=== PATIENT | female | born 1985 | race Caucasian/White ===

== ENCOUNTER 2024-05-23 23:18 | Emergency (ER) | payer OTHER, SELFPAY ==
[2024-05-23 23:37] VITALS: BP 112/73
[2024-05-23 23:52] LABS: Urine Albumin Negative (Neg - Trace); Urine Bilirubin Negative (Negative); Urine Character Slightly Cloudy (Clear); Urine Color Yellow; Urine Glucose Negative (Negative); Urine Ketone Negative (Negative); Urine Leukocyte Trace (Negative); Urine Nitrite Negative (Negative); Urine Occult Blood Negative (Negative); Urine Specific Gravity 1.015 (<1.030); Urine Urobilinogen Negative (Neg - 1+)
[2024-05-24 00:26] LABS: Urine Amorphous Seen; Urine Mucus Moderate; Urine Squamous Cell >30 /LPF (Few); Urine Urothelial Cell >30 /LPF (FEW)
[2024-05-24 00:27] LABS: Urine Bacteria Many (Negative)
--- NOTE | 2024-05-24 00:28 | ED.GENMED ---
History of Present Illness
<CLIFF Dunn - Last Filed: 05/24/24 03:48>
General
Chief Complaint: Flank Pain
Source: patient and family (Mother)
Time Seen by Provider: 05/24/24 00:20
Nursing documentation reviewed up to this point in time: agreed with
History of Present Illness
History of Present Illness:
A pleasant 38-year-old -0-2-2, who is currently 25 weeks gestation, with a past medical history of nephrolithiasis, drug-induced lupus, presents to the emergency department for right-sided flank pain x 2 days. Patient states that over the last
2 days she has felt achy right-sided flank pain without radiation. She states at 9:45 PM tonight there was a significant increase in sharp/stabbing pain on the right side leading to nausea and 1 episode of nonbloody vomiting where she retched 3
times. She currently rates her pain at a 7 out of 10 which fluctuates up to a 9 out of 10 during right side colic. She denies SOB, chest pain, diarrhea, vaginal bleeding.
Past History
<CLIFF Dunn - Last Filed: 05/24/24 03:48>
Past History
ED Past Medical History: Other (Drug-induced lupus)
ED Past Surgical History: Other ([place] teeth)
Social History
Tobacco: Non-smoker
Alcohol: None
Drug: None
Review of Systems
<CLIFF Dunn - Last Filed: 05/24/24 03:48>
Review of Systems
Allergies reviewed?: Yes
All Other Systems: ROS reviewed and negative except as documented in HPI and ROS
Phy Exam
<CLIFF Dunn - Last Filed: 05/24/24 03:48>
General Physical Exam
General Presentation: mild distress
General age: appears stated age
General Skin: warm
General Habitus: other (25 weeks gestation)
General Mental: alert
General Hydration: appears well hydrated
Eye Exam
Eye Exam: conjunctiva normal
Cardiovascular Exam
Cardiovascular Exam: regular rate/rhythm, no gallop, no murmur and normal peripheral pulses
Pulmonary Exam
Pulmonary Exam: lungs clear, no respiratory distress, no crackles and no cough
Gastrointestinal Exam
Gastrointestinal Exam: non tender, cva tenderness (Right side) and other (Appropriately distended for 25-week gestation)
Neurological Exam
Neurological Exam: alert and oriented x3
Musculoskeletal Exam
Musculoskeletal Exam: full ROM
Skin Exam
Skin Exam: warm/dry
Psychiatric Exam
Psychiatric Exam: other (In visible pain)
Course
<Jimmy Kamara [facility] - Last Filed: 05/24/24 03:48>
Orders/Labs/Results
Orders:
Orders
05/23/24 23:47
Urinalysis Reflex To Culture Urgent
Date Specimen was Collected: 05/23/24
Time Specimen was Collected: 23:44
Urine Microscopic Reflex Cult Urgent
Urine Culture Urgent
JENNY Source: U
Specimen Description:
Date Specimen was Collected: 05/23/24
Time Specimen was Collected: 23:44
05/24/24 00:24
Renal & Bladder US [US Renal With Bladder] Urgent
Comment:
Reason For Exam: acute R flank pain w N/V--25 w prg
05/24/24 01:02
Acetaminophen 1000MG/100Ml [Ofirmev] 1,000 mg in 100 ml IV ONCE
Acetaminophen IV Indication:: ED Narcotic Naive Pt-ONCE
05/24/24 01:56
Urinalysis Reflex To Culture Urgent
Date Specimen was Collected: 05/24/24
Time Specimen was Collected: 01:53
Urine Microscopic Reflex Cult Urgent
Urine Culture Urgent
JENNY Source: U
Specimen Description:
Date Specimen was Collected: 05/24/24
Time Specimen was Collected: 01:53
05/24/24 02:20
Basic Metabolic Panel Urgent
Complete Blood Count/With Diff Urgent
05/24/24 02:58
Cephalexin Monohydrate [Keflex] 500 mg PO NOW STA
Abnormal Lab Results
05/23/24 05/24/24 05/24/24
23:47 01:56 02:20
WBC 12.6 H 10^3/uL
(4.8-10.8)
RBC 4.07 L 10^6/uL
(4.20-5.40)
Hct 34.4 L %
(37.0-47.0)
MPV 10.9 H fL
(7.4-10.4)
Abs Immat Gran (auto) 0.1 H 10^3/uL
(0-0.05)
Absolute Neuts (auto) 10.4 H 10^3/uL
(1.4-6.5)
Absolute Monos (auto) 0.8 H 10^3/uL
(0.1-0.6)
Immature Gran % 0.8 H %
(0-0.5)
Neutrophils % 82.5 H %
(42.2-75.2)
Lymphocytes % 9.8 L %
(20.5-51.1)
Carbon Dioxide 20 L mmol/L
(22-30)
Ur Occult Blood Reflex 4+ A
(Negative)
Leukocyte Esterase Rfl Trace A
(Negative)
Urine RBC 7-10 A /HPF >100 A /HPF
(0-2) (0-2)
Urine WBC (Reflex) 11-15 A /HPF
(0-5)
Urine Bacteria (Reflex) Many A Moderate A
(Negative) (Negative)
05/24/24 02:20
05/24/24 02:20
Vital Signs
Initial and Last Documented VS:
Initial Vital Signs
Temp Pulse Resp BP Pulse Ox
98.2 F 78 26 112/73 99
05/23/24 23:37 05/23/24 23:37 05/23/24 23:37 05/23/24 23:37 05/23/24 23:37
Last Documented Vital Signs
Temp Pulse Resp BP Pulse Ox
98.2 F 85 16 109/57 98
05/23/24 23:37 05/24/24 03:15 05/24/24 03:15 05/24/24 03:15 05/24/24 03:15
<Ileana Wong DO - Last Filed: 05/24/24 03:06>
Orders/Labs/Results
Orders:
Orders
05/23/24 23:47
Urinalysis Reflex To Culture Urgent
Date Specimen was Collected: 05/23/24
Time Specimen was Collected: 23:44
Urine Microscopic Reflex Cult Urgent
Urine Culture Urgent
JENNY Source: U
Specimen Description:
Date Specimen was Collected: 05/23/24
Time Specimen was Collected: 23:44
05/24/24 00:24
Renal & Bladder US [US Renal With Bladder] Urgent
Comment:
Reason For Exam: acute R flank pain w N/V--25 w prg
05/24/24 01:02
Acetaminophen 1000MG/100Ml [Ofirmev] 1,000 mg in 100 ml IV ONCE
Acetaminophen IV Indication:: ED Narcotic Naive Pt-ONCE
05/24/24 01:56
Urinalysis Reflex To Culture Urgent
Date Specimen was Collected: 05/24/24
Time Specimen was Collected: 01:53
Urine Microscopic Reflex Cult Urgent
Urine Culture Urgent
JENNY Source: U
Specimen Description:
Date Specimen was Collected: 05/24/24
Time Specimen was Collected: 01:53
05/24/24 02:20
Basic Metabolic Panel Urgent
Complete Blood Count/With Diff Urgent
05/24/24 02:58
Cephalexin Monohydrate [Keflex] 500 mg PO NOW STA
Abnormal Lab Results
05/23/24 05/24/24 05/24/24
23:47 01:56 02:20
WBC 12.6 H 10^3/uL
(4.8-10.8)
RBC 4.07 L 10^6/uL
(4.20-5.40)
Hct 34.4 L %
(37.0-47.0)
MPV 10.9 H fL
(7.4-10.4)
Abs Immat Gran (auto) 0.1 H 10^3/uL
(0-0.05)
Absolute Neuts (auto) 10.4 H 10^3/uL
(1.4-6.5)
Absolute Monos (auto) 0.8 H 10^3/uL
(0.1-0.6)
Immature Gran % 0.8 H %
(0-0.5)
Neutrophils % 82.5 H %
(42.2-75.2)
Lymphocytes % 9.8 L %
(20.5-51.1)
Carbon Dioxide 20 L mmol/L
(22-30)
Ur Occult Blood Reflex 4+ A
(Negative)
Leukocyte Esterase Rfl Trace A
(Negative)
Urine RBC 7-10 A /HPF >100 A /HPF
(0-2) (0-2)
Urine WBC (Reflex) 11-15 A /HPF
(0-5)
Urine Bacteria (Reflex) Many A Moderate A
(Negative) (Negative)
05/24/24 02:20
05/24/24 02:20
Vital Signs
Initial and Last Documented VS:
Initial Vital Signs
Temp Pulse Resp BP Pulse Ox
98.2 F 78 26 112/73 99
05/23/24 23:37 05/23/24 23:37 05/23/24 23:37 05/23/24 23:37 05/23/24 23:37
Last Documented Vital Signs
Temp Pulse Resp BP Pulse Ox
98.2 F 85 16 109/57 98
05/23/24 23:37 05/24/24 03:15 05/24/24 03:15 05/24/24 03:15 05/24/24 03:15
<CLIFF Dunn - Last Filed: 05/24/24 03:48>
MDM/Problems Addressed
Differential Diagnosis Includes:
Nephrolithiasis, pyelonephritis, ovarian cyst, ovarian torsion, threatened
<Ileana Wong DO - Last Filed: 05/24/24 03:06>
*Radiology
Radiology exam reviewed: radiology read reviewed
*Pulse Oximetry
Patient hypoxic: no
*Critical Care Note
Total Time (30-74mins, 75-104mins- exclusive of procedures): Not Applicable
ED Attending Note
<CLIFF Dunn - Last Filed: 05/24/24 03:48>
-
Portions of this chart may have been created with voice recognition software.� Occasional wrong word or��sound alike� substitutions may have occurred due to the inherent limitations of voice recognition software.
<Ileana Wong DO - Last Filed: 05/24/24 03:06>
ED Attending Note
Patient seen and examined by attending physician: Yes
I performed the substantive portion of visit, reviewed & personally made and approve the management plan that is documented in note by myself or ROXANNA.: Yes
ED Attending Note:
This is a 38-year-old woman currently 25 weeks with EDC of August 31, 2024. Thus far uneventful , she follows with a nurse biostatistics manager.
She has history of kidney stones with prior episode of renal colic 2014.
She does note some mild right lateral flank pain over the past 2 days but tonight around 9:45 PM developed severe, abrupt right flank to right lower quadrant pain accompanied with nausea, dry heaves. Pain is very similar to previous episodes of
renal colic. She denies dysuria and urgency nor hematuria, no fever no chills, no diarrhea or constipation.
No vaginal bleeding or discharge. She has not taken anything for discomfort.
Pain is currently improved, mild at present and nausea has resolved.
38-year-old woman appears her stated age, bright and alert, pleasant, appears in no acute distress. Accompanied by her mother. Vital signs within normal limits.
HEENT: Oral mucosa is moist.
Heart is regular rate and rhythm.
Lungs are clear to auscultation. Respirations are easy nonlabored.
Abdomen is gravid, fundus 4 cm above umbilicus. Moderate right CVA tenderness otherwise abdomen is soft and nontender.
Extremities without clubbing or cyanosis nor edema. Nontender. Peripheral pulses are full and equal.
Skin is warm and dry, normal color. Good turgor.
Awake alert and oriented x 3, no focal neurodeficits, gait is carroll and steady.
Concern for acute renal colic/right ureteric stone, other consideration is pyelonephritis, less likely appendicitis, ovarian torsion.
Patient has been offered Zofran/morphine which she declines. She is agreeable to IV Tylenol. Due to will avoid NSAIDs.
Urinalysis shows many bacteria, 11-15 WBCs, 7-10 RBCs but is a contaminated specimen with greater than 30 squamous epithelial cells. Patient admits that this was not a midstream urine collection.
Will check renal ultrasound with bladder and will plan for repeat urinalysis, midstream clean-catch to assess for potential UTI.
05/24/2024 0259 AM
Patient is pain-free and comfortable after IV dose of Tylenol. No further nausea.
Renal ultrasound shows 8 x 4 mm stone in the proximal right ureter with mild hydronephrosis and hydroureter. No other stones in the kidneys bilaterally. Visualized bladder is relatively decompressed.
Repeat urinalysis, clean-catch midstream continues to show greater than 30 squamous epithelial cells, not consistent with clean-catch however moderate bacteria, only 3-5 WBCs, greater than 100 RBCs.
Due to persistent bacteriuria and current will treat for potential UTI. It is reassuring that patient has had no UTI symptoms, no fever.
Labs are reassuring with normal renal function. Minimally elevated white blood cell count.
Will discharge to home with course of Keflex for bacteriuria/potential UTI.
Will prescribe Zofran for as needed nausea and recommend Tylenol for as needed mild to moderate pain and I have written a prescription for for oxycodone for as needed moderate to severe pain.
Discussed importance of staying well-hydrated on a daily basis.
Will refer to urology for follow-up.
Return precautions discussed.
Discharge Plan
Departure
Patient Disposition: Home (Routine Discharge)
Date of Disposition: 05/24/24
Time of Disposition: 03:01
Patient with high blood pressure during this ER visit?: No
Condition: Good
Discharge Problem:
Calculus of proximal right ureter, 25 weeks gestation of
Instructions: Kidney Stones (DC), How to Strain Your Urine, Narcotic Pain Medication
Prescriptions:
New
cephalexin 500 mg capsule
500 mg PO Q8H 5 Days Qty: 15 0RF
ondansetron 4 mg tablet,disintegrating
4 mg PO QID PRN (Reason: nausea and vomiting) Qty: 20 0RF
oxycodone 5 mg tablet
5 mg PO TID PRN (Reason: Pain) Qty: 10 0RF
No Action
docosahexaenoic acid 100 MG capsule
2 tab PO DAILY
PNV cmb#95-ferrous fumarate-FA [] 1 EACH tablet
1 ea PO DAILY
L.acidoph, paracasei,B. lactis 1 EACH capsule
1 dropperett PO DAILY
Magnesium Citrate
2 tab PO DAILY
Referrals:
Jose Bowden MD [Active] - Call in 1-3 days for appt
Sam Duran CRNP [Family Provider] -
Interventions
Interventions:
*Risk Screen - Suicide Last Done: 05/23/24 23:37
*General Assessment Last Done: 05/24/24 00:40
*Neglect/Abuse Screening Last Done: 05/24/24 00:40
ED- Fall Risk Assessment Last Done: 05/24/24 00:41
*ED COVID-19 Vaccine History Last Done: 05/24/24 00:39
*Nursing Disposition Last Done: 05/24/24 03:15
WG-Clopws-Jlxgsceecm Assessment Last Done: 05/24/24 00:38
ED-Female Genitourinary Assessment Last Done: 05/24/24 00:37
Discharge Date and Time
Discharge Date/Time: 05/24/24 03:17
Print Language: NIUEAN
[2024-05-24] MEDS: OFIRMEV 100 IV (01:06)
[2024-05-24 01:10] VITALS: BMI 28.0
[2024-05-24 02:00] VITALS: BP 107/72
[2024-05-24 02:04] LABS: Urine Albumin Negative (Neg - Trace); Urine Bilirubin Negative (Negative); Urine Character Clear (Clear); Urine Color Yellow; Urine Glucose Negative (Negative); Urine Ketone Negative (Negative); Urine Leukocyte Negative (Negative); Urine Nitrite Negative (Negative); Urine Occult Blood 4+ (Negative); Urine Specific Gravity 1.005 (<1.030); Urine Urobilinogen Negative (Neg - 1+)
[2024-05-24 02:22] LABS: Urine Squamous Cell >30 /LPF (Few)
[2024-05-24 02:23] LABS: Urine Bacteria Moderate (Negative)
[2024-05-24 02:24] LABS: Urine Red Blood Cell >100 /HPF (0-2)
[2024-05-24 02:26] LABS: % Basophils 0.3 % (0-2); % Eosinophils 0.2 % (0-6); % Immature Granulocytes 0.8 % (0-0.5); % Lymphocytes 9.8 % (20.5-51.1); % Monocytes 6.4 % (1.7-9.3); % Neutrophils 82.5 % (42.2-75.2); Absolute Immature Granulocytes 0.1 10^3/uL (0-0.05); Absolute Lymphocytes 1.2 10^3/uL (1.2-3.4); Absolute Monocytes 0.8 10^3/uL (0.1-0.6); Absolute Neutrophils 10.4 10^3/uL (1.4-6.5); Hematocrit 34.4 % (37.0-47.0); Hemoglobin 12.4 g/dL (12.0-16.0); Mean Corpuscular Hgb 30.5 pg (27.0-31.0); Mean Corpuscular Volume 84.5 fL (81.0-99.0); Mean Platelet Volume 10.9 fL (7.4-10.4); Nucleated Red Blood Cells % 0 %; Platelet Count 293 10^3/uL (130-400); Red Blood Cell Count 4.07 10^6/uL (4.20-5.40); Red Cell Dist. Width 13.5 % (11.5-14.5); White Blood Cell Count 12.6 10^3/uL (4.8-10.8)
[2024-05-24 02:34] LABS: Blood Urea Nitrogen 16 mg/dl (7-17); Calcium 9.4 mg/dl (8.4-10.2); Carbon Dioxide 20 mmol/L (22-30); Chloride 103 mmol/L (98-107); Estimated Creatinine Clearance 109 ml/min; Glucose 92 mg/dl (70-99); Potassium 3.9 mmol/L (3.5-5.1); Sodium 138 mmol/L (135-145); eGFR > 60.00
[2024-05-24] MEDS: KEFLEX 500 MG PO (03:03)
[2024-05-24 03:08] VITALS: BP 109/57
[2024-05-24 03:15] VITALS: BP 109/57
== END 2024-05-24 03:17 | disposition home or self-care (01) ==
LOC: EMR 23:18
PROVIDERS: Student in an Organized Health Care Education/Training Program; EMERGENCY PHYSICIAN Emergency Medicine; FAMILY PHYSICIAN Nurse Practitioner
DX: O26.832 Pregnancy related renal disease, second trimester (principal); N13.2 Hydronephrosis with renal and ureteral calculous obstruction; O09.522 Supervision of elderly multigravida, second trimester; Z3A.25 25 weeks gestation of pregnancy
CPT/HCPCS: 96374; 99284; 76770; 80048; 81003; 81015; 85025; 87086

== ENCOUNTER 2024-05-25 15:01 | Day surgery (SDC) | payer OTHER, SELFPAY ==
[2024-05-25] VITALS (11 sets, daily range): BP systolic 107–128; BP diastolic 60–76; BMI 27.3
[2024-05-25] MEDS: ZOFRAN 4 MG IV (11:31)
[2024-05-25] MEDS: NSS 1000 IV (11:33)
[2024-05-25] MEDS: OFIRMEV 100 IV (11:34)
[2024-05-25 12:02] LABS: % Basophils 0.2 % (0-2); % Eosinophils 0.1 % (0-6); % Immature Granulocytes 0.4 % (0-0.5); % Lymphocytes 9.4 % (20.5-51.1); % Monocytes 5.7 % (1.7-9.3); % Neutrophils 84.2 % (42.2-75.2); Absolute Immature Granulocytes 0.1 10^3/uL (0-0.05); Absolute Lymphocytes 1.2 10^3/uL (1.2-3.4); Absolute Monocytes 0.7 10^3/uL (0.1-0.6); Absolute Neutrophils 10.5 10^3/uL (1.4-6.5); Hematocrit 37.9 % (37.0-47.0); Hemoglobin 13.1 g/dL (12.0-16.0); Mean Corp Hgb Conc. 34.6 g/dL (33.0-37.0); Mean Corpuscular Hgb 30.4 pg (27.0-31.0); Mean Corpuscular Volume 87.9 fL (81.0-99.0); Mean Platelet Volume 10.6 fL (7.4-10.4); Nucleated Red Blood Cells % 0 %; Platelet Count 273 10^3/uL (130-400); Red Blood Cell Count 4.31 10^6/uL (4.20-5.40); Red Cell Dist. Width 13.7 % (11.5-14.5); White Blood Cell Count 12.4 10^3/uL (4.8-10.8)
[2024-05-25 12:03] LABS: ALT (SGPT) 15 U/L (0-35); AST (SGOT) 21 U/L (14-36); Albumin 4.2 g/dl (3.5-5.0); Alkaline Phosphatase 68 U/L (38-126); Blood Urea Nitrogen 11 mg/dl (7-17); Calcium 9.1 mg/dl (8.4-10.2); Carbon Dioxide 19 mmol/L (22-30); Chloride 102 mmol/L (98-107); Estimated Creatinine Clearance > 125 ml/min; Glucose 84 mg/dl (70-99); Potassium 3.8 mmol/L (3.5-5.1); Sodium 136 mmol/L (135-145); Total Bilirubin 0.4 mg/dl (0.2-1.3); Total Protein 7.1 g/dl (6.3-8.2); eGFR > 60.00
[2024-05-25 12:06] LABS: Urine Albumin Negative (Neg - Trace); Urine Bilirubin Negative (Negative); Urine Character Clear (Clear); Urine Color Yellow; Urine Glucose Negative (Negative); Urine Ketone 1+ (Negative); Urine Leukocyte Negative (Negative); Urine Nitrite Negative (Negative); Urine Occult Blood Negative (Negative); Urine Urobilinogen Negative (Neg - 1+)
--- NOTE | 2024-05-25 13:25 | EDRN ---
Urologist in to see pt at this time.
--- NOTE | 2024-05-25 13:48 | EDRN ---
Pt states pain is now 7/10 w/ E. Trino CHENG informed at this time.
--- NOTE | 2024-05-25 14:02 | ED.GENMED ---
History of Present Illness
General
Chief Complaint: Flank Pain
Source: patient and spouse
Exam Limitations: none
Time Seen by Provider: 05/25/24 11:22
Nursing documentation reviewed up to this point in time: agreed with
History of Present Illness
History of Present Illness:
38-year-old female currently 26 weeks follows with a community case manager in our [place] has had a confirmatory ultrasound no complications of presenting to the emergency department today with concerns of ongoing right-sided flank pain
diagnosed with a kidney stone 1 day ago. Ongoing pain and nausea since.
Past History
Past History
ED Past Medical History: Other (Drug-induced lupus)
ED Past Surgical History: Other ([place] teeth)
Social History
Tobacco: Non-smoker
Alcohol: None
Drug: None
Review of Systems
Review of Systems
Allergies reviewed?: Yes
All Other Systems: ROS reviewed and negative except as documented in HPI and ROS
Phy Exam
Physical Exam
Physical Exam:
GENERAL: Alert , uncomfortable
EYE: pupils equal and reactive
NECK: Supple, no significant adenopathy.
ENT: o/p clr, mmm.
CARDIAC: Regular rate and rhythm .
LUNGS: Clear breath sounds bilaterally, no acute respiratory distress, no wheezes/rales/rhonchi
ABDOMEN: Soft, without focal tenderness, no r/g, no cvat
NEUROLOGICAL: Alert and oriented, no focal neuro deficits
SKIN: Warm and dry, skin intact.
MUSCULOSKELETAL: No edema, well perfused.
PSYCH: Normal and appropriate interaction.
Course
Orders/Labs/Results
Orders:
Orders
05/25/24 11:26
Acetaminophen 1000MG/100Ml [Ofirmev] 1,000 mg in 100 ml IV ONCE
Acetaminophen IV Indication:: No IL & No Enteral Access
Ondansetron Injectable [Zofran] 4 mg IV NOW STA
05/25/24 11:27
0.9% Sodium Chloride 1000 ml [Nss] 1,000 ml IV BOLUS
Ondansetron Injectable [Zofran] 4 mg .ROUTE .STK-MED ONE
05/25/24 11:28
Acetaminophen 1000MG/100Ml [Ofirmev] 1,000 mg in 100 ml .ROUTE .STK-MED
05/25/24 11:30
Heart Tones ONCE
05/25/24 11:39
CBC/With Diff [Complete Blood Count/With Diff] Urgent
CMP [Comprehensive Metabolic Panel] Urgent
05/25/24 11:51
Urinalysis Reflex To Culture Urgent
Date Specimen was Collected: 05/25/24
Time Specimen was Collected: 11:50
05/25/24 13:24
HYDROmorphone [Dilaudid] 0.25 mg IV PACU-Q5MPRN PRN
HYDROmorphone [Dilaudid] 0.5 mg IV PACU-Q5MPRN PRN
Meperidine [Demerol] 12.5 mg IV PACU-Q5MPRN PRN
Ondansetron Injectable [Zofran] 4 mg IV PACU-ONCEPRN PRN
Prochlorperazine [Compazine] 5 mg IV PACU-ONCEPRN PRN
Notify MD As Directed
Notify physician if: for SDS patients with known or suspected sleep obstructive sleep apnea, monitor in the
PACU.
Notify MD for any apneic/desaturation episodes
O2 Therapy [RESP] Urgent
Titrate/Wean O2 to maintain O2 sat greater than (%): 92
Special Instructions: -Provide supplemental oxygen to achieve O2 sat of 92% or greater.
-After 15 min, may wean O2 and discontinue if patient is able to maintain O2 sat of 92%
or greater during recovery period.
If patient is a discharge home, without oxygen therapy, notify anestheiologist if
unable to maintain O2 SAT of 92% or greater on room air for MD clearance.
Abnormal Lab Results
05/25/24 05/25/24
11:39 11:51
WBC 12.4 H 10^3/uL
(4.8-10.8)
MPV 10.6 H fL
(7.4-10.4)
Abs Immat Gran (auto) 0.1 H 10^3/uL
(0-0.05)
Absolute Neuts (auto) 10.5 H 10^3/uL
(1.4-6.5)
Absolute Monos (auto) 0.7 H 10^3/uL
(0.1-0.6)
Neutrophils % 84.2 H %
(42.2-75.2)
Lymphocytes % 9.4 L %
(20.5-51.1)
Carbon Dioxide 19 L mmol/L
(22-30)
Urine Ketones 1+ A
(Negative)
05/25/24 11:39
05/25/24 11:39
Vital Signs
Initial and Last Documented VS:
Initial Vital Signs
Temp Pulse Resp BP Pulse Ox
97.6 F 82 32 126/74 97
05/25/24 11:12 05/25/24 11:12 05/25/24 11:12 05/25/24 11:12 05/25/24 11:12
Last Documented Vital Signs
Temp Pulse Resp BP Pulse Ox
97.6 F 72 14 107/60 100
05/25/24 11:12 05/25/24 12:00 05/25/24 12:00 05/25/24 12:00 05/25/24 12:00
MDM/Problems Addressed
MDM/Problems Addressed:
38-year-old female currently 26 weeks follows with a community case manager in our [place] has had a confirmatory ultrasound no complications of presenting to the emergency department today with concerns of ongoing right-sided flank pain
diagnosed with a kidney stone 1 day ago. Ongoing pain and nausea since. On arrival here vital signs are normal patient does appear to be uncomfortable labs obtained showing elevated white count and some ketones in the urine. Normal heart
tones in the 140s. Patient was seen by urology recommending stent at this point OB was additionally consulted who will do NST pre and post procedure and admitted to medicine.
*Critical Care Note
Total Time (30-74mins, 75-104mins- exclusive of procedures): Not Applicable
ED Attending Note
-
Portions of this chart may have been created with voice recognition software.� Occasional wrong word or��sound alike� substitutions may have occurred due to the inherent limitations of voice recognition software.
Discharge Plan
Departure
Patient Disposition: Admit
Date of Disposition: 05/25/24
Time of Disposition: 14:07
Admit to: Med/Surg
Admit to doctor: Yeison
Presentation/result/management discussed w/ accepting MD/DO: Hospitalist
Patient with high blood pressure during this ER visit?: No
Condition: Good
Covid-19: Not Applicable
Discharge Problem:
Right ureteral calculus
Prescriptions:
No Action
docosahexaenoic acid 100 MG capsule
2 tab PO DAILY
PNV cmb#95-ferrous fumarate-FA [] 1 EACH tablet
1 ea PO DAILY
L.acidoph, paracasei,B. lactis 1 EACH capsule
1 dropperett PO DAILY
Magnesium Citrate
2 tab PO DAILY
cephalexin 500 mg capsule
500 mg PO Q8H 5 Days Qty: 15 0RF
ondansetron 4 mg tablet,disintegrating
4 mg PO QID PRN (Reason: nausea and vomiting) Qty: 20 0RF
oxycodone 5 mg tablet
5 mg PO TID PRN (Reason: Pain) Qty: 10 0RF
Referrals:
Larry Su MD [Family Provider] -
Interventions
Interventions:
*Risk Screen - Suicide Last Done: 05/25/24 11:37
*General Assessment Last Done: 05/25/24 11:36
*Neglect/Abuse Screening Last Done: 05/25/24 11:37
ED- Fall Risk Assessment Last Done: 05/25/24 11:37
*ED COVID-19 Vaccine History Last Done: 05/25/24 11:36
DP-Sfbdjw-Ejhjdgabic Assessment Last Done: 05/25/24 11:37
ED-Female Genitourinary Assessment Last Done: 05/25/24 12:05
Discharge Date and Time
Print Language: YAKUT
--- NOTE | 2024-05-25 14:18 | EDRN ---
Dr. Zavala in room obtaining consent and discussing surgery w/ pt at this time. OR is ready and pt to go up when he is done.
--- NOTE | 2024-05-25 14:20 | EDRN ---
Ileana RODARTE called and LDRP in OR awaiting pt there.
--- NOTE | 2024-05-25 14:22 | EDRN ---
Hospitalist in room w/pt. Pt is awaiting ED PCT to take her to OR at this time.
--- NOTE | 2024-05-25 14:41 | HPS.HSE ---
Addendum entered and electronically signed by Keri Latham MD 05/25/24 17:15:
changed to consultation rather than H&P
requesting physician : Bhavesh Jameson PA-C from ED
consulting MD: Dr. Marsha Spencer/Dr. Keri Latham
I personally performed a history and physical exam of the patient and discussed management with the resident. I reviewed the resident's note and agree with the documented findings and plan of care HPI/CC.
GENERAL: well developed, well nourished, in no apparent distress--saw pt in PACU--groggy but otherwise OK
HEENT: NC/AT
HEART: regular rate and rhythm, +S1, +S2
LUNGS : clear to auscultation bilaterally
ABDOM: soft, nontender, nondistended, + bowel sounds
EXT: no cyanosis, clubbing, or edema
NEUROLOGIC: grossly intact
female
Nephrolithiasis--has had before-- 8x4mm likely ureteral calculus seen on ultrasound 05/24/24 in ED, did not pass spontaneously and pain progressed at home.--asked to admit--but d/w urology--no need for admission--he will do lithotripsy and pt able to
be d/c from [facility]-- Routine postop care per urology.
-- 26w0d gestational age, reports due date of 08/31/24- Reports regular care, no complications this - OB consulted, appreciate recs. Reassuring tracing for her gestational age. No additional intervention needed from the OB
standpoint, she can f/u with her outpatient practice for routine care --cont vitamins
Code status-- full
no need for admission from medicine standpoint--admission orders were cancelled
Original Note:
Family Physician
-
Family Physician: Larry Su
Chief Complaint
-
kidney stone
History of Present Illness
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 She also presented to ED 05/24/24 for 2 days of R flank pain and was
found to have 8x4mm likely ureteral calculus on renal ultrasound. She was discharged home with pain medications and urology follow up in hopes that stone would pass spontaneously as her previous kidney stones had. However, her pain and nausea
worsened and she returned to ED today. No obstetric complaints. Denies lightheadedness, dizziness, chest pain, shortness of breath, vomiting, diarrhea, constipation. Last BM was 2 days ago, no black or bloody stools. At baseline tolerates PO diet
and ambulates independently.
Medical History
Past Medical History
Past Medical History: Reports Other
Additional Past Medical History:
nephrolithiasis
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
hypothyroidism during prior
Past Surgical History: Reports None
Additional Past Surgical History:
wisdom teeth
Social History
Tobacco: Former Smoker (some tobacco use in college)
Alcohol: None (no alcohol use in ; occasional alcohol use outside of )
Drug: None
Personal:
Living: With Family
Family History
Family History: CAD, Diabetes, Hypertension and Other (Father: parkinson disease, HTN, CAD, DM. Grandparents: stoke, heart disease)
Allergies / Home Medications
Allergies reflects when Allergies were last updated in [employer].
Home Medications with original date entered in [employer]
Allergy/Medication List:
Allergies
Allergy/AdvReac Type Severity Reaction Status Date / Time
tetracycline Allergy drug Verified 05/25/24 11:14
induced
Lupus
Tetracyclines Allergy drug Verified 05/25/24 11:14
induced
lupus
Home Medications
L.acidoph, paracasei,B. lactis 10 billion cell capsule 1 dropperett PO DAILY 07/22/19
docosahexaenoic acid 100 mg capsule 2 tab PO DAILY 07/22/19
vit no.95-ferrous fumarate 28 mg-folic acid 800 mcg tablet () 1 ea PO DAILY 07/22/19
cephalexin 500 mg capsule 500 mg PO Q8H 5 days #15 caps 05/24/24
ondansetron 4 mg disintegrating tablet 4 mg PO QIDPRN PRN nausea and vomiting 05/25/24
oxycodone 5 mg tablet 5 mg PO TIDPRN PRN severe Pain 05/25/24
Review of Systems
-
History Source: Patient
Constitutional: Reports No Symptoms; Denies Fever or Chills
EENT: Reports No Symptoms
Respiratory: Reports Other (mild cold-like symptoms)
Cardiac: Reports No Symptoms
Abdomen/GI: Reports Nausea; Denies Vomiting, Diarrhea, Constipated, Bloody Stools, Black Stools or Pain
: Reports Flank Pain
Musculoskeletal: Reports No Symptoms
Skin: Reports No Symptoms
Neurological: Reports No Symptoms
Psych: Reports No Symptoms
Physical Exam
Vital Signs
Vital Signs
Temp Pulse Resp BP Pulse Ox
97.6 F 78 16 118/76 100
05/25/24 11:12 05/25/24 14:00 05/25/24 14:00 05/25/24 14:00 05/25/24 14:00
Physical Exam
General: Well Developed, Well Nourished, No Apparent Distress, Conversant and Other (appears uncomfortable)
HEENT: NormoCephalic, Anicteric and Atraumatic; No Oxygen
Respiratory: Clear and Non Labored Respirations; No Wheezes
Cardiac: S1/S2 and Regular Rhythm
GI: Soft, Non Tender and Other (gravid)
Genito-urinary: Deferred by me
Musculoskeletal: No Edema
Skin: Warm and Dry
Neuro: Awake, Alert, Oriented, AO x 3 and Nonfocal/grossly intact
Psych: Calm and Intact Judgment/Insight
Laboratory Results
-
05/25/24 11:39
05/25/24 11:39
Laboratory Results
Total Bilirubin 0.4 mg/dl (0.2-1.3) 05/25/24 11:39
AST 21 U/L (14-36) 05/25/24 11:39
ALT 15 U/L (0-35) 05/25/24 11:39
Alkaline Phosphatase 68 U/L (38-126) 05/25/24 11:39
Data Reviewed
-
Ultrasound: Report Reviewed by me and Discussed with Physician
Lab Data: Labs Reviewed by me
Impression/Plan
-
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 She also presented to ED 05/24/24 for 2 days of R flank pain and was
found to have 8x4mm likely ureteral calculus on renal ultrasound.
Nephrolithiasis
- 8x4mm likely ureteral calculus seen on ultrasound 05/24/24 in ED, did not pass spontaneously and pain progressed at home.
- Urology consulted, appreciate recs. To OR for ?lithotripsy +/- stents per urology.
- Routine postop care per urology.
- Continue supportive measures, pain control (avoid NSAIDs), hydration.
- 26w0d gestational age, reports due date of 08/31/24.
- Reports regular care, no complications this .
- OB consulted, appreciate recs. tones prior to OR. Post op monitoring per OB.
- Continue PNV.
Code status: full
VTE ppx: ambulation as tolerated, SCDs
Diet: NPO preop --> regular diet as tolerated postop
Dispo planning: anticipate dc home pending clinical course
--- NOTE | 2024-05-25 15:02 | CONS.URO ---
Consultation
-
Performing Provider: Peffer
Reason for Consultation: R ureteral stone
Medical History
History of Present Illness
38F 26 weeks with R flank pain
Found to have 4x8mm stone on renal US 2 days ago
Readmitted for intractable pain despite 10mg oxycodone
No UTI sx but started on cephalosporin last visit
Urine culture negative
No fevers at home
Prior hx of stone 10 years ago
Past Medical History
Past Medical History: Other (Kidney stone)
Past Surgical History: None
Social History
Tobacco: Non-smoker
Alcohol: None
Drug: None
Family History
Family History: Reviewed & Not Pertinent
Allergies/Home Medications
Allergies
Allergy/AdvReac Type Severity Reaction Status Date / Time
tetracycline Allergy drug Verified 05/25/24 11:14
induced
Lupus
Tetracyclines Allergy drug Verified 05/25/24 11:14
induced
lupus
Home Medications
�Medication �Instructions �Recorded �Confirmed �Type
L.acidoph, paracasei,B. lactis 10 1 dropperett PO DAILY 07/22/19 05/25/24 History
billion cell capsule
docosahexaenoic acid 100 mg capsule 2 tab PO DAILY 07/22/19 05/25/24 History
vit no.95-ferrous 1 ea PO DAILY 07/22/19 05/25/24 History
fumarate 28 mg-folic acid 800 mcg
tablet ()
cephalexin 500 mg capsule 500 mg PO Q8H 5 days #15 caps 05/24/24 05/25/24 Rx
ondansetron 4 mg disintegrating 4 mg PO QIDPRN PRN nausea and 05/25/24 05/25/24 History
tablet vomiting
oxycodone 5 mg tablet 5 mg PO TIDPRN PRN severe Pain 05/25/24 05/25/24 History
Physical Exam
Vital Signs
Vital Signs
Temp Pulse Resp BP Pulse Ox
97.6 F 78 16 118/76 100
05/25/24 11:12 05/25/24 14:00 05/25/24 14:00 05/25/24 14:00 05/25/24 14:00
Lab / Testing Results
Laboratory Results
05/25/24 11:39
05/25/24 11:39
Physical Exam
General: Well Developed, Well Nourished and No Apparent Distress
GI: Other (gravid)
Genito-urinary: Costovertebral Angle Tend
Skin: Warm and Dry
Neuro: AO x 3
Psych: Calm and Intact Judgement
Assessment / Plan
-
Discussed management options with patient and her in detail, including further trial of passage, ureteral stent placement, or attempted ureteroscopy
Detailed discussion about risks and benefits of each approach
Given severe jerrica despite 10mg oxycodone, and large proximal stone, further trial of passage is unlikely to be successful
Patient interested in ureteroscopy and laser lithotripsy. Discussed procedure and stent management in detail. Reviewed risks of surgery and possible complications to patient and her including bleeding, infection, anesthesia complications,
early contractions or labor, radiation impact, damage to ureter
- NPO for OR
- R ureteroscopy, laser lithotripsy, ureteral stent
- Ancef ppx
- Okay to stop antibiotic course at discharge
- Outpatient follow up for stent removal
Data Reviewed
-
Ultrasound: Image personally visualized and interpreted
Lab Data: Labs Reviewed
--- NOTE | 2024-05-25 15:55 | W.IMMPOSTOP ---
Surgical Immed Post Op Note
-
Primary Surgeon: Elisafer
Pre-op Diagnosis: R ureteral stone
Post-op Diagnosis: same
Procedure Performed: cystoscopy, R ureteroscopy, laser lithotripsy, stone extraction
Anesthesia Type: general
Specimen / Cultures: stone analysis
Estimated Blood Loss: none
Complications: none
Operative Findings:
Stone removed
Accommodating ureter with no dilation required, no mucosal inflammation or injury during course of procedure
Strong ureteral jet without hematuria at case conclusion
--- NOTE | 2024-05-25 16:42 | W.PN.UPDATE ---
Update Note
Progress Note Update
38yo @ 26 weeks with a kidney stone, who underwent removal procedure with Urology. Given that she is in late 2nd trimester I was asked to assist with monitoring. FHR was obtained pre procedure and then we did 15 minutes of monitoring post
procedure
FHR: 160/Mod/-A/-D. Reassuring tracing for her gestational age.
No additional intervention needed from the OB standpoint, she can f/u with her outpatient practice for routine care
[2024-05-30 22:54] LABS: Stone Analysis Mass 2 mg
== END 2024-05-25 17:43 | disposition home or self-care (01) ==
LOC: PACU 15:01
PROVIDERS: Physician Assistant; Student in an Organized Health Care Education/Training Program; ATTENDING PHYSICIAN Urology; EMERGENCY PHYSICIAN Student in an Organized Health Care Education/Training Program; FAMILY PHYSICIAN Internal Medicine
DX: O26.832 Pregnancy related renal disease, second trimester (principal); N20.1 Calculus of ureter; Z3A.26 26 weeks gestation of pregnancy
CPT/HCPCS: 52353; 80053; 81003; 82365; 85025; 96374; 96375; 99284; A4300; C1758; C1769; C1894